=== PATIENT | female | born 1970 | race Caucasian/White ===

== ENCOUNTER 2016-09-22 11:14 | Emergency (ER) | payer BC ==
[2016-09-22 11:32] VITALS: BP 107/73
--- NOTE | 2016-09-22 11:44 | UC ---
Throat Pain/Nasal Jorgito HPI - HPI Summary HPI Summary: complaint of sore throat, nasal congestion and cough that started approx 11-12 daysa go productive cough with yellow mucous coughing at night continually thinks she has had fever several times extremely fatigued pain behind her eyes, teeth and jaw bilateral ear pain taking OTC- severe cold and flu , throat spray, ibuprofen without relief - History of Current Complaint Chief Complaint: UCRespiratory Stated Complaint: COUGH Time Seen by Provider: 09/22/16 11:33 Hx Obtained From: Patient Hx Last Menstrual Period: 09/12/16 - Allergies/Home Medications Allergies/Adverse Reactions: Allergies Allergy/AdvReac Type Severity Reaction Status Date / Time No Known Allergies Allergy Verified 09/22/16 11:32 Home Medications: Home Medications busPIRone TAB* [Buspar TAB*] 30 mg PO DAILY 09/22/16 [History Confirmed 09/22/16 ] PMH/Surg Hx/FS Hx/Imm Hx Previously Healthy: Yes Psychological History: Anxiety Other History Of: Negative For: HIV, Hepatitis B, Hepatitis C, Anticoagulant Therapy - Surgical History Surgical History: Yes Surgery Procedure, Year, and Place: WISDOM TEETH - Family History Known Family History: Positive: Cardiac Disease, Hypertension Negative: Diabetes - Social History Occupation: Employed Full-time Lives: With Family Alcohol Use: Weekly Substance Use Type: None Smoking Status (MU): Never Smoked Tobacco - Immunization History Most Recent Tetanus Shot: ~2010 Review of Systems Constitutional: Fever, Fatigue Skin: Negative Eyes: Negative ENT: Sore Throat, Ear Ache, Nasal Discharge, Sinus Congestion, Sinus Pain/ Tenderness Respiratory: Cough Cardiovascular: Negative Gastrointestinal: Negative Genitourinary: Negative Motor: Negative Neurovascular: Negative Musculoskeletal: Negative Neurological: Headache Psychological: Negative All Other Systems Reviewed And Are Negative: Yes Physical Exam Triage Information Reviewed: Yes Appearance: No Pain Distress, Well-Nourished Vital Signs: Initial Vital Signs Temp 99 F 09/22/16 11:26 Pulse 74 09/22/16 11:26 Resp 18 09/22/16 11:26 BP 107/73 09/22/16 11:26 Pulse Ox 98 09/22/16 11:26 Vital Signs Reviewed: Yes Eyes: Positive: Conjunctiva Clear ENT: Positive: Pharyngeal erythema, Nasal congestion, Nasal drainage, TM bulging , TM dull, Other: - frontal and maxillary sinus tenderness. Negative: TM red Dental: Positive: Cervical Lymphadenopathy Respiratory: Positive: Lungs clear, Normal breath sounds, No respiratory distress, No accessory muscle use Cardiovascular: Positive: RRR, No Murmur, Pulses Normal Abdomen Description: Positive: Nontender, Soft Bowel Sounds: Positive: Present Musculoskeletal: Positive: No Edema Neurological: Positive: Alert Psychological Exam: Normal Skin Exam: Normal Throat Pain/Nasal Course/Dx - Course Course Of Treatment: exam completed. will rx for augmentin for sinusitis d/t sinus tenderness and length of illness - Differential Dx/Diagnosis Differential Diagnosis/HQI/PQRI: Sinusitis, URI Provider Diagnoses: sinusitis Discharge - Discharge Plan Condition: Stable Disposition: HOME Prescriptions: Amoxicillin/Clavulanate TAB* [Augmentin TAB 875*] 875 mg PO BID #20 tab Guaifenesin-Codeine [Cheratussin AC] 10 ml PO Q6HR #200 ml MDD 40 ml Patient Education Materials: Sinusitis (ED) Referrals: Karina Hoyos MD [Primary Care Provider] - Additional Instructions: SINUSITIS What is Sinusitis? Sinusitis is inflammation or infection of the lining of the sinuses behind the bones in your cheeks or forehead. Sinusitis may occur following a common cold, flu, or other infection; allergies; a tooth infection that spreads to the sinuses; swimming in contaminated water; pressure changes in airplanes at high altitudes; violent sneezing or nose blowing or smoking or breathing other peoples smoke. Symptoms Might Include: Nasal Congestion Sneezing Watery eyes, eye irritation, or eye itching Headaches Pressure in the cheeks Wheezing Trouble smelling Sore throat and coughing may occur Treatment Recommendations: Take medicines as prescribed until completely gone. Drink plenty of fluids. Use saline nose spray to thin the mucous and help the sinuses drain. Use a vaporizer or humidifier. Apply warm compresses to the face or forehead several times a day for 10 to 20 minutes. Call Your Doctor or Return Here IF: Your pain increases during treatment. You develop a high temperature. You develop unusual swelling around the eyes. You have difficulty with your vision. You develop a severe headache, earache, or toothache. You develop increased fever or fever that does not respond to medication such as Tylenol?. You have difficulty breathing or catching your breath. You begin to have any other new symptoms that worry you.
== END 2016-09-22 11:58 | disposition home or self-care (01) ==
LOC: UCCORT 11:14
DX: J32.9 Chronic sinusitis, unspecified (principal); F41.9 Anxiety disorder, unspecified
CPT/HCPCS: 99212; G0463

== ENCOUNTER 2017-04-16 12:45 | Emergency (ER) | payer BC ==
[2017-04-16 13:08] VITALS: BP 125/85
--- NOTE | 2017-04-16 13:44 | UC ---
Ear Complaint HPI - HPI Summary HPI Summary: 46 y/o female presents to the [facility] c/o B/L ear pain for the past 2 days. Pt reports URI symptoms since 03/27/17 with nasal congestion, and sinus pain and SHELBY. Nasal congestion has now a green nasal discharge with +DND, productive cough, decrease hearing. Pain is 5/10. She has been using OTC Mucinex and Vicks to alleviate symptoms which helps for a little while. Pt denies fever, SOB , chest pain, N/V/D, dizziness. - History of Current Complaint Chief Complaint: UCEar Stated Complaint: BILAT EAR PAIN/ST/COUGH Time Seen by Provider: 04/16/17 13:33 Hx Obtained From: Patient Hx Last Menstrual Period: 03/22/17 Onset/Duration: Gradual Onset, Lasting Weeks - 3 weeks, Still Present, Worse Since - 2 days Severity Initially: Mild Severity Currently: Moderate Pain Intensity: 5 Pain Scale Used: 0-10 Numeric Aggravating Factors: Other - nasal congestion Alleviating Factors: Nothing Associated Signs/Symptoms: Positive: Hearing Loss, URI Symptoms - Allergies/Home Medications Allergies/Adverse Reactions: Allergies Allergy/AdvReac Type Severity Reaction Status Date / Time No Known Allergies Allergy Verified 04/16/17 13:08 Home Medications: Home Medications Pseudoephedrine-Guaifenesin [Mucinex D 60-600 mg] 2 tab PO BID 04/16/17 [ History Confirmed 04/16/17] PMH/Surg Hx/FS Hx/Imm Hx Previously Healthy: Yes - Pt denies pMHX Other History Of: Negative For: HIV, Hepatitis B, Hepatitis C, Anticoagulant Therapy - Surgical History Surgical History: None Surgery Procedure, Year, and Place: WISDOM TEETH - Family History Known Family History: Positive: Cardiac Disease, Hypertension Negative: Diabetes - Social History Occupation: Employed Full-time Lives: With Family Alcohol Use: Weekly Substance Use Type: None Smoking Status (MU): Never Smoked Tobacco - Immunization History Most Recent Influenza Vaccination: no Most Recent Tetanus Shot: ~2010 Review of Systems Constitutional: Negative - B/L ear pain Skin: Negative Eyes: Negative ENT: Ear Ache, Nasal Discharge, Sinus Congestion, Sinus Pain/Tenderness Respiratory: Cough Cardiovascular: Negative Gastrointestinal: Negative Genitourinary: Negative Motor: Negative Neurovascular: Negative Musculoskeletal: Negative Neurological: Headache Psychological: Negative Is Patient Immunocompromised?: No All Other Systems Reviewed And Are Negative: Yes Physical Exam Triage Information Reviewed: Yes Vital Signs: Initial Vital Signs Temp 99.8 F 04/16/17 13:02 Pulse 90 04/16/17 13:02 Resp 16 04/16/17 13:02 BP 125/85 04/16/17 13:02 Pulse Ox 98 04/16/17 13:02 - Additional Comments Vitals: reviewed General: Well developed, well-nourished female patient with NAD. Head and face: Normocephalic and atraumatic, Positive tenderness over the frontal and maxillary sinuses.. Eyes: PERRLA, EOMI x 2. Normal conjunctiva. No eye discharge. ENT: Ears and TM with normal limits. Nose: with yellowish discharge and erythematous mucosa. Pharynx with erythema, no exudate. Neck: Supple, no JVD, no carotid bruits and no lymphadenopathy. Lungs: clear, no rales, no rhonchi, no wheezes. CVS: RRR, S1 and S2 present no murmurs or gallops appreciated. Abdomen: soft nontender with positive bowel sounds. Extremities: no edema noted. Neuro: WNL. Skin: warm and dry Ear Complaint Course/Dx - Course Course Of Treatment: 46 y/o female presents to the [facility] c/o B/L ear pain for the past 2 days. Pt reports URI symptoms since 03/27/17 with nasal congestion, and sinus pain and SHELBY. Nasal congestion has now a green nasal discharge with +DND, productive cough, decrease hearing. Pain is 5/10. She has been using OTC Mucinex and Vicks to alleviate symptoms which helps for a little while. Pt denies fever, SOB, chest pain, N/V/D, dizziness.Hx obtained. Pt with 3 weeks of symptoms getting worse. Pt Rx Amoxicillin PO and flonase nasal spray. Discharge instructions explained to Pt. Advised to Return to the clinic or PCP if symptoms do not improve.Pt understood and agreed with plan of care. - Differential Dx/Diagnosis Differential Diagnosis/HQI/PQRI: Bronchitis, Otitis Externa, Otitis Media, Perforated TM, Pharyngitis, TMJ Syndrome, URI, Other - Sinusitis Provider Diagnoses: 1- Acute bacterial sinusitis Discharge - Discharge Plan Condition: Stable Disposition: HOME Prescriptions: Amoxicillin/Clavulanate TAB* [Augmentin TAB 875*] 875 mg PO BID #20 tab Fluticasone NASAL SPRAY 50MCG* [Flonase NASAL SPRAY 50MCG*] 2 spray BOTH NARES DAILY #1 btl Patient Education Materials: Sinusitis (ED) Referrals: Karina Hoyos MD [Primary Care Provider] - 3 Days Additional Instructions: 1- Please increase fluid intake and rest. take full course of antibiotic to avoid resistance 2-Use Flonase as directed to help drain fluid. Also buy saline drops to clear sinuses 3-Take Sudafed or Claritin PO to alleviates sinus congestion 4-Return to the clinic or PCP if symptoms do not improve for further management and treatment
== END 2017-04-16 14:04 | disposition home or self-care (01) ==
LOC: UCCORT 12:45
DX: J01.90 Acute sinusitis, unspecified (principal); H92.03 Otalgia, bilateral
CPT/HCPCS: 99212; G0463

== ENCOUNTER 2018-08-25 10:52 | Emergency (ER) | payer BC ==
[2018-08-25 11:22] VITALS: BP 118/84
[2018-08-25] MEDS ORDERED: Ibuprofen TAB* 600 MG PO ONE (12:02)
--- NOTE | 2018-08-25 12:02 | UC ---
Throat Pain/Nasal Jorgito HPI - HPI Summary HPI Summary: 47-year-old woman comes in with a chief complaint of sinusitis symptoms. 5 days ago patient started with a sore throat. This has moved her sinuses she's having a lot of sinus pressure she's having yellow rhinorrhea. She has pain into her upper teeth. Afrin last night which did open up her sinuses and she was able to breathe can sleep better. She has not had any pain medicines today. No fevers measured. - History of Current Complaint Chief Complaint: UCGeneralIllness Stated Complaint: SINUS CONCERN Time Seen by Provider: 08/25/18 11:51 Hx Last Menstrual Period: 08/12/18 Pain Intensity: 7 - Allergies/Home Medications Allergies/Adverse Reactions: Allergies Allergy/AdvReac Type Severity Reaction Status Date / Time No Known Allergies Allergy Verified 04/16/17 13:08 PMH/Surg Hx/FS Hx/Imm Hx Previously Healthy: Yes Other History Of: Negative For: HIV, Hepatitis B, Hepatitis C, Anticoagulant Therapy - Surgical History Surgical History: Yes Surgery Procedure, Year, and Place: WISDOM TEETH - Family History Known Family History: Positive: Cardiac Disease, Hypertension Negative: Diabetes - Social History Alcohol Use: None Substance Use Type: None Smoking Status (MU): Never Smoked Tobacco - Immunization History Most Recent Influenza Vaccination: no Most Recent Tetanus Shot: ~2010 Review of Systems All Other Systems Reviewed And Are Negative: Yes Constitutional: Positive: Negative Skin: Positive: Negative Eyes: Positive: Negative ENT: Positive: Sore Throat, Ear Ache, Nasal Discharge, Sinus Congestion, Sinus Pain/Tenderness Respiratory: Positive: Negative Cardiovascular: Positive: Negative Gastrointestinal: Positive: Negative Motor: Positive: Negative Neurovascular: Positive: Negative Musculoskeletal: Positive: Negative Neurological: Positive: Negative Psychological: Positive: Negative Is Patient Immunocompromised?: No Physical Exam Triage Information Reviewed: Yes Appearance: Well-Appearing, Well-Nourished, Pain Distress - MILD Vital Signs: Initial Vital Signs Temp 98.4 F 08/25/18 11:17 Pulse 76 08/25/18 11:17 Resp 16 08/25/18 11:17 BP 118/84 08/25/18 11:17 Pulse Ox 100 08/25/18 11:17 Vital Signs Reviewed: Yes Eye Exam: Normal Eyes: Positive: Conjunctiva Clear ENT: Positive: Pharyngeal erythema, Nasal congestion, Nasal drainage, TM dull - RT Neck exam: Normal Neck: Positive: Supple Respiratory: Positive: Lungs clear, Normal breath sounds, No respiratory distress Cardiovascular: Positive: RRR Musculoskeletal Exam: Normal Musculoskeletal: Positive: Strength Intact, ROM Intact Neurological Exam: Normal Neurological: Positive: Alert, Muscle Tone Normal Psychological Exam: Normal Psychological: Positive: Age Appropriate Behavior Skin Exam: Normal Throat Pain/Nasal Course/Dx - Course Course Of Treatment: DISCUSSED VIRAL VERSES BACTERIAL INFECTION AND THE ROLE OF ANTIBIOTICS. THE PATIENT PREFERS TO BE ON ANTIBIOTICS AT THIS TIME. - Differential Dx/Diagnosis Provider Diagnosis: Sinusitis Discharge - Sign-Out/Discharge Documenting (check all that apply): Patient Departure All imaging exams completed and their final reports reviewed: No Studies - Discharge Plan Condition: Stable Disposition: HOME Prescriptions: Amoxicillin/Clavulanate TAB* [Augmentin TAB 875*] 875 mg PO BID #20 tab Fluticasone NASAL SPRAY 50MCG* [Flonase NASAL SPRAY 50MCG*] 2 spray BOTH NARES DAILY #1 btl Patient Education Materials: Sinusitis (ED) Referrals: Karina Hoyos MD [Primary Care Provider] - Additional Instructions: FOLLOW UP WITH YOUR DOCTOR IF NOT COMPLETELY IMPROVED. YOUR RAPID STREP TEST WAS NEGATIVE. GET RECHECKED SOONER IF YOUR CONDITION WORSENS OR ANY QUESTIONS OR CONCERNS. - Billing Disposition and Condition Condition: STABLE Disposition: Home
== END 2018-08-25 12:11 | disposition home or self-care (01) ==
LOC: UCCORT 10:52
DX: J32.9 Chronic sinusitis, unspecified (principal)
CPT/HCPCS: 87651; 99212; A9270-GY; G0463

== ENCOUNTER 2019-05-19 11:48 | Emergency (ER) | payer BC ==
[2019-05-19 12:34] VITALS: BP 111/74
--- NOTE | 2019-05-19 12:49 | UC ---
Ear Complaint HPI - HPI Summary HPI Summary: 48-year-old female who has had bilateral ear fullness over the past few days which she thought was cerumen impaction. She has been instilling earwax softening drops and flushing ear ears without improvement. She denies any cold symptoms. - History of Current Complaint Chief Complaint: UCEar Stated Complaint: RT EAR PROBLEM Time Seen by Provider: 05/19/19 12:48 Hx Obtained From: Patient Hx Last Menstrual Period: 05/13/18 ?: No Onset/Duration: Gradual Onset Severity Initially: Mild Severity Currently: Mild Pain Intensity: 0 Aggravating Factors: Nothing Alleviating Factors: Nothing - Allergies/Home Medications Allergies/Adverse Reactions: Allergies Allergy/AdvReac Type Severity Reaction Status Date / Time No Known Allergies Allergy Verified 05/19/19 12:27 PMH/Surg Hx/FS Hx/Imm Hx Previously Healthy: Yes Psychological History: Depression Other History Of: Negative For: HIV, Hepatitis B, Hepatitis C, Anticoagulant Therapy - Surgical History Surgical History: Yes Surgery Procedure, Year, and Place: WISDOM TEETH - Family History Known Family History: Positive: Cardiac Disease, Hypertension Negative: Diabetes - Social History Alcohol Use: None Substance Use Type: None Smoking Status (MU): Never Smoked Tobacco - Immunization History Most Recent Influenza Vaccination: no Most Recent Tetanus Shot: ~2010 Review of Systems All Other Systems Reviewed And Are Negative: Yes ENT: Positive: Other - Denies ear pain just states both ears feel full the right worse than the left. Is Patient Immunocompromised?: No Physical Exam Triage Information Reviewed: Yes Appearance: Well-Appearing, No Pain Distress, Well-Nourished Vital Signs: Initial Vital Signs Temp 98.6 F 05/19/19 12:28 Pulse 89 05/19/19 12:28 Resp 18 05/19/19 12:28 BP 111/74 05/19/19 12:28 Pulse Ox 99 05/19/19 12:28 Vital Signs Reviewed: Yes Eyes: Positive: Conjunctiva Clear ENT: Positive: Pharynx normal, TMs normal, Uvula midline Neck: Positive: Supple, Nontender, No Lymphadenopathy Respiratory: Positive: Lungs clear, Normal breath sounds, No respiratory distress, No accessory muscle use Cardiovascular: Positive: RRR, No Murmur, Pulses Normal, Brisk Capillary Refill Musculoskeletal Exam: Normal Neurological Exam: Normal Psychological Exam: Normal Skin Exam: Normal Ear Complaint Course/Dx - Course Course Of Treatment: Patient is comfortable here. There was absolutely no cerumen in her ear canals. I'm going to try Flonase to see if that alleviates some of the fluid pressure in her ears. If she has no improvement or any worsening symptoms she is to follow-up with an ear nose and throat physician. - Differential Dx/Diagnosis Provider Diagnosis: Serous otitis media Discharge ED - Sign-Out/Discharge Documenting (check all that apply): Patient Departure All imaging exams completed and their final reports reviewed: No Studies - Discharge Plan Condition: Good Disposition: HOME Prescriptions: Fluticasone NASAL SPRAY 50MCG* [Flonase NASAL SPRAY 50MCG*] 2 spray BOTH NARES DAILY 7 Days #1 btl Patient Education Materials: Serous Otitis Media (ED) Referrals: Karina Hoyos MD [Primary Care Provider] - Adolph Lucio MD [Medical Doctor] - Stalin Bautista MD [Medical Doctor] - Additional Instructions: [id number] decongestant as directed. If no improvement after one week of using the Flonase and follow up with an ear nose and throat physician. - Billing Disposition and Condition Condition: GOOD Disposition: Home
== END 2019-05-19 12:58 | disposition home or self-care (01) ==
LOC: UCCORT 11:48
DX: H65.93 Unspecified nonsuppurative otitis media, bilateral (principal)
CPT/HCPCS: 99212; G0463